=== PATIENT | female | born 1985 | race Two or more races ===

== ENCOUNTER 2024-08-14 12:06 | Emergency (ER) | payer OTHER ==
[~2024-08-14] VITALS: Ht 154.9 cm; Wt 85.4 kg
[2024-08-14 13:35] VITALS: BP 117/94; PULSE 114; RESP 20; TEMP 97.7; O2SAT 97
[2024-08-14] MEDS: TETRACAINE HCL 0.5% OPTH(EYE) SOLN 4ML EACHEYE ONE (14:05)
[2024-08-14] MEDS: FLUORESCEIN SOD OPTH TEST STRIP EACHEYE ONE (14:05)
--- NOTE | 2024-08-14 14:32 | ED.PDOC ---
Eye-HPI HPI Comments A 38 YEAR OLD FEMALE PRESENTS TO THE ED WITH CHIEF COMPLAINT OF LEFT EYE CHEMICAL EXPOSURE. 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 PATIENT RELAYS THAT SHE HAD IMMEDIATE PAIN AND REDNESS TO HER LEFT EYE, BUT SHE WAS STILL ABLE TO SEE OUT HER EYE. PATIENT DENIES ANY BLURRED VISION, LOSS OF VISION, DIZZINESS, OR HEADACHE. NO OTHER SYMPTOMS REPORTED AT THIS TIME OF CARE. Chief Complaint: Post Exposure Time Seen by MD: 14:29 Reviewed Notes: Nurses Notes, Medications, Allergies Allergies: Coded Allergies: NO KNOWN ALLERGIES (Unverified , 08/14/24) Home Meds Active Scripts Tobramycin Sulfate (Tobrex) [address], 2 DROP OP QID, #5 ML Prov:ANTONIO FINNEY 08/14/24 Information Source: Patient Mode of Arrival: Ambulatory Timing: Hours Duration: Since onset Prehospital treatment: None Quality: Pain, Red Eye Location: Left Lids: Normal Conjunctiva: Injection Cornea: Left eye, Abrasion Pupils: Normal EOM: Normal Slit lamp exam: Left eye, Corneal abrasion, Foreign Body, Positive Onset: Chemical Exposure Throat Exposed to: None History of: None Associated signs and symptoms: None Past Medical History PAST MEDICAL HISTORY: Denies Surgical History: Denies all surgeries LOGISTICS INTERN History: No Pertinent LOGISTICS INTERN History Family History Family History: Reviewed,noncontributory to illness Social History Smoker: Non-Smoker Alcohol: Denies ETOH Use Drugs: Denies Drug Use Lives In: Home Constitutional: denies: chills, diaphoresis, fatigue, fever, malaise, sweats, weakness, others EENTM: reports: eye pain, eye redness; denies: blurred vision, double vision, ear bleeding, ear discharge, ear drainage, ear pain, ear ringing, hearing loss, mouth pain, mouth swelling, nasal discharge, nose bleeding, nose congestion, nose pain, photophobia, tearing, throat pain, throat swelling, voice changes, others Respiratory: denies: cough, hemoptysis, orthopnea, SOB at rest, shortness of breath, SOB with excertion, stridor, wheezing, others Cardiovascular: denies: chest pain, dizzy spells, diaphoresis, Dyspnea on exertion, edema, irregular heart beat, left arm pain, lightheadedness, palpitations, PND, syncope, others Gastrointestinal: denies: abdomen distended, abdominal pain, blood streaked bowels, constipated, diarrhea, dysphagia, difficulty swallowing, hematemesis, melena, nausea, poor appetite, poor fluid intake, rectal bleeding, rectal pain, vomiting, others Genitourinary: denies: abnormal vagina bleeding, burning, dyspareunia, dysuria, flank pain, frequency, hematuria, incontinence, pain, , vagina discharge, urgency, others Neurological: denies: dizziness, fainting, headache, left sided numbness, left sided weakness, numbness, paresthesia, pre-existing deficit, right sided numbness, right sided weakness, seizure, speech problems, tingling, tremors, weakness, others Musculoskeletal: denies: back pain, gout, joint pain, joint swelling, muscle pain, muscle stiffness, neck pain, others Integumetry: denies: bruises, change in color, change in hair/nails, dryness, laceration, lesions, lumps, rash, wounds, others Allergic/Immunocompromised: denies: Difficulty Healing, Frequent Infections, Hives, Itching, others Hematologic/Lymphatic: denies: anemia, blood clots, easy bleeding, easy bruising, swollen glands, others Endocrine: denies: excessive hunger, excessive sweating, excessive thirst, excessive urination, flushing, intolerance to cold, intolerance to heat, unexplained weight gain, unexplained weight loss, others Psychiatric: denies: anxiety, bipolar disorder, depression, hopeless, panic disorder, schizophrenia, sleepless, suicidal, others All Other Systems: Reviewed and Negative Physical Exam General Appearance: No Apparent Distress, Normal HEENT: Cornea (L) (WOOD LAMP EXAM: +FB AND MILD CORNEA ABRASION. ), PERRL/EOMI Neck: Full Range of Motion, Non-Tender, Normal, Normal Inspection Respiratory: Chest Non-Tender, Lungs Clear, No Accessory Muscle Use, No Respiratory Distress, Normal Breath Sounds Cardiovascular: No Edema, No JVD, No Murmur, No Gallop, Normal Peripheral Pulses, Regular Rate/Rhythm Breast Exam: Deferred Gastrointestinal: No Organomegaly, Non Tender, No Pulsatile Mass, Normal Bowel Sounds, Soft Genitalia: Deferred Pelvic: Deferred Rectal: Deferred Extremities: No calf tenderness, Normal capillary refill, Normal inspection, Normal range of motion, Non-tender, No pedal edema Musculoskeletal : Apperance: Normal 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 Was a procedure done?: Yes Sedation Sedation?: No Foreign Body Removal Foreign body in: Eye Anesthetic: Other (TETRACAINE) Prep: Saline, Irrigation (LEFT EYE WITH NMORMAL SALINE. ) Procedure: Identified, Removed (A TINY FB WITH A NEEDLE SCRAPING. ) Informed consent obtained: Yes Risks/benefits/alt described: Yes Notes TETRACAINE AND FLUORESCEIN APPLIED TO LEFT EYE. POSITIVE SMALL CORNEAL ABRASION NOTED TO LEFT EYE. FLUSHED EYE WITH 300CCS OF NORMAL SALINE PER POISON CONTROL INSTRUCTIONS. FOREIGN BODY REMOVED FROM LEFT EYE. EENT DIFF Eye: Corneal Abrasion, Foreign Body-Corneal, Subconjunctival Hemorrhag X-Ray, Labs, Meds, VS Vital Signs Date Time Temp Pulse Resp B/P (MAP) Pulse Ox O2 Delivery O2 Flow Rate FiO2 08/14/24 13:35 114 20 97 Room Air 08/14/24 13:35 97.7 114 20 117/94 (102) 97 97.7 08/14/24 12:39 97.1 114 20 117/94 (102) 97 97.1 X-Ray, Labs, Meds, VS Comment COURSE: EXTERNAL MEDICAL RECORDS REVIEWED: [NONE] INDEPENDENT HISTORIANS: [NONE] SOCIAL DETERMINANTS OF HEALTH: [NONE] LABS ORDERED: NONE REVIEWED AND INTERPRETED RESULTS: NONE IMAGING ORDERED: NONE TREATMENTS ORDERED: NONE PROCEDURES PERFORMED: GALE LAMP EXAM CRITICAL CARE TIME: NONE I HAVE DISCUSSED THE PATIENT WITH THE ATTENDING PHYSICIAN DR. CRYSTAL] AND HE AGREES WITH THE PATIENT'S PLAN OF CARE AND DISPOSITION. BASED ON HISTORY OF PRESENT ILLNESS, AND PHYSICAL EXAM, PATIENT WILL BE DISCHARGED HOME. DISCUSSED PLAN FOR DISCHARGE HOME WITH RX: TOBREX OP[facility]. MEDICATION WARNINGS GIVEN. SHARED DECISION MAKING: DISCUSSED WITH PATIENT THAT THEIR WORKUP WAS NORMAL. PATIENT INSTRUCTED TO FOLLOW UP WITH PRIMARY CARE PROVIDER IN 1-2 DAYS FOR RE- EVALUATION OF SYMPTOMS. PATIENT VERBALIZES UNDERSTANDING TO RETURN TO ED FOR NEW OR WORSENING SYMPTOMS OR IF FOLLOW UP WITH PCP CANNOT BE OBTAINED. PATIENT FEELS COMFORTABLE GOING HOME AT THIS TIME. ALL QUESTIONS ADDRESSED AT TIME OF DISCHARGE. Time of 1ST Reevaluation: 15:16 Reevaluation 1ST: Unchanged Patient Education/Counseling: Diagnosis, Treatment, Need For Follow Up Family Education/Counseling: Diagnosis, Treatment, No Family Present Medical Screening: No EMC Exist At This Time Departure 1 Departure Time of Disposition: 15:16 Impression: Primary Impression: Left corneal abrasion Qualified Codes: S05.02XA - Injury of conjunctiva and corneal abrasion without foreign body, left eye, initial encounter Additional Impression: Foreign body of left eye Qualified Codes: T15.92XA - Foreign body on external eye, part unspecified, left eye, initial encounter Disposition: HOME / SELF CARE / HOMELESS Condition: Stable Additional Instructions: FOLLOW-UP WITH GLOBAL RISK MANAGEMENT DIRECTOR IN 1 TO 2 DAYS. TAKE MEDICATIONS PRESCRIBED. RETURN TO ED FOR ANY NEW OR WORSENING SYMPTOMS. e-Prescriptions Tobramycin Sulfate (Tobrex) [address] 2 DROP OP QID, #5 ML Prov: ANTONIO FINNEY 08/14/24 Discharged With: Self Critical Care Note Critical Care Time?: No Stability Stability form required: No Heart Score Heart Score: Heart Score Response (Comments) Value History N/A 0 EKG N/A 0 Age N/A 0 Risk Factors N/A 0 Troponin N/A 0 Total 0 I personally scribed for ANTONIO FINNEY ([email or web address]) on 08/14/24 at 14:32. Electronically submitted by Olegario Shaw ([email or web address]). I personally scribed for ANTONIO FINNEY ([email or web address]) on 08/14/24 at 14:54. Electronically submitted by Olegario Shaw ([email or web address]). I personally scribed for ANTONIO FINNEY ([email or web address]) on 08/14/24 at 14:56. Electronically submitted by Olegario Shaw ([email or web address]). ANTONIO FINNEY Aug 14, 2024 14:32
[2024-08-14] MEDS ORDERED: TOB03OS OP (14:54)
== END 2024-08-14 15:03 | disposition home or self-care (01) ==
LOC: ER 12:21
DX: T15.02XA Foreign body in cornea, left eye, initial encounter (principal); W44.9XXA Unspecified foreign body entering into or through a natural orifice, initial encounter; Y93.89 Activity, other specified; Y92.89 Other specified places as the place of occurrence of the external cause; Y99.0 Civilian activity done for income or pay
CPT/HCPCS: 65222